=== PATIENT | female | born 1990 | race Caucasian/White ===

== ENCOUNTER 2022-03-13 17:21 | Emergency (ER) | payer OTHER ==
[~2022-03-13] VITALS: Ht 165.1 cm; Wt 65.8 kg
[2022-03-13] MEDS ORDERED: KETO10TA2 PO (21:39)
[2022-03-13] MEDS ORDERED: CIPRO500 MG PO (21:39)
== END 2022-03-13 21:45 | disposition home or self-care (01) ==
LOC: ER 17:21
DX: S91.311A Laceration without foreign body, right foot, initial encounter (principal); W45.8XXA Other foreign body or object entering through skin, initial encounter; Y93.9 Activity, unspecified; Y92.832 Beach as the place of occurrence of the external cause; Y99.9 Unspecified external cause status